=== PATIENT | female | born 1965 | race Asian ===

== ENCOUNTER 2017-03-01 11:42 | Emergency (ER) | payer OTHER ==
[2017-03-01 12:19] VITALS: BP 146/58; PULSE 79; TEMP 98.5; BMI 25.0
--- NOTE | 2017-03-01 12:59 | PDOC ---
History of Present Illness - General Chief Complaint: Pain Stated Complaint: FOOT INJURY Time Seen by Provider: 03/01/17 12:56 History Source: Patient Exam Limitations: No Limitations - History of Present Illness Initial Comments: 03/01/17 13:32 States slipped and jammed left great toe against discussed step causing an avulsion of left great toenail and injury to foot. States replace the toenail under epionychium and wrapped it 03/01/17 16:27 Occurred: reports: other (3 days ago ) Severity: reports: mild, moderate Pain Location: reports: lower extremity (left foot ) Method of Injury: Yes: direct blow Modifying Factors: improves with: None, cold therapy Associated Symptoms (Fall): denies symptoms Past History - Travel Traveled outside of the country in the last 30 days: No Close contact w/someone who was outside of country & ill: No - Past Medical History Allergies/Adverse Reactions: Allergies Allergy/AdvReac Type Severity Reaction Status Date / Time ciprofloxacin [From Cipro] AdvReac Mild Rash Verified 03/01/17 12:16 ciprofloxacin HCl AdvReac Mild Rash Verified 03/01/17 12:16 [From Cipro] Home Medications: Ambulatory Orders Insulin (Levemir) [Levemir Flexpen -] 10 units PO ASDIR 03/01/17 Metformin HCl [Metformin HCl ER] 500 mg PO ASDIR 03/01/17 Oxycodone HCl/Acetaminophen [Percocet 5-325 mg Tablet] 1 - 2 tab PO Q4H #20 tablet MDD pain 03/01/17 Diabetes: Yes - Suicide/Smoking/Psychosocial Hx Smoking History: Never smoked Have you smoked in the past 12 months: No Information on smoking cessation initiated: No Hx Alcohol Use: No Drug/Substance Use Hx: No Substance Use Type: None Trauma Specific PMHX - Complaint Specific PMHX Back Injury: No Neck Injury: No Review of Systems - Review of Systems Able to Perform ROS?: Yes Is the patient limited Maori proficient: Yes Constitutional: Yes: See HPI. No: Symptoms Reported, Chills, Fever HEENTM: No: Symptoms Reported Musculoskeletal: Yes: Symptoms Reported, See HPI, Joint Pain Integumentary: Yes: Symptoms Reported All Other Systems: Reviewed and Negative *Physical Exam - Vital Signs Last Vital Signs Temp Pulse Resp BP Pulse Ox 98.5 F 79 16 146/58 99 03/01/17 12:16 03/01/17 12:16 03/01/17 12:16 03/01/17 12:16 03/01/17 12:16 - Physical Exam General Appearance: Yes: Nourished, Appropriately Dressed, Apparent Distress HEENT: positive: RC, Normal ENT Inspection, TMs Normal, Pharynx Normal Neck: negative: Tender Respiratory/Chest: positive: Lungs Clear Musculoskeletal: positive: Other (lifted left great toenail approximately 90% with some attachment at the medial aspect at epionychium. Rest of toenail has remainder of eponychial lifted existing. Is stable. Has range of motion to toe but is tender.). 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 Avulsed toenail but continues attachment. We'll treat with Xeroform gauze and dressing with cast shoe. Instructed to keep highly elevated and provided Percocet for pain relief *DC/Admit/Observation/Transfer Diagnosis at time of Disposition: Toenail avulsion Qualifiers: Encounter type: initial encounter Qualified Code(s): S91.209A - Unspecified open wound of unspecified toe(s) with damage to nail, initial encounter - Discharge Dispostion Disposition: HOME Condition at time of disposition: Stable Admit: No - Prescriptions Prescriptions: Oxycodone HCl/Acetaminophen [Percocet 5-325 mg Tablet] 1 - 2 tab PO Q4H #20 tablet MDD pain - Referrals Referrals: Serge Killian MD [Primary Care Provider] - David Mac MD [Staff Physician] - - Patient Instructions Printed Discharge Instructions: DI for Suture Removal, DI for Toe Sprain Additional Instructions: Rest, ice to area on and off for 15 minutes 4-6 times a day Avoid heavy lifting or exercise until pain and swelling is resolved or until further directed Keep area highly elevated to reduce swelling Use splints/Darrell wrap as directed Followup with orthopedist in one to 2 days if not improving, if significantly improved may wait one week for followup with orthopedist May use ibuprofen 2-200 mg tablets every 6 hours as needed for pain May use percocet for severe pain Follow up with Dr Mac for reevaluation next week - Post Discharge Activity Forms/Work/School Notes: Back to Work
== END 2017-03-01 13:55 | disposition home or self-care (01) ==
LOC: JERFT 11:42
PROC: 0HQNXZZ Repair Left Foot Skin, External Approach (ICD-10-PCS; principal; 2017-03-01)
DX: S91.202A Unspecified open wound of left great toe with damage to nail, initial encounter (principal); Z79.4 Long term (current) use of insulin; W22.8XXA Striking against or struck by other objects, initial encounter; Y93.89 Activity, other specified; Y92.9 Unspecified place or not applicable
CPT/HCPCS: 73630-TC-LT; 99281-25